=== PATIENT | male | born 1970 | race Caucasian/White ===

== ENCOUNTER 2018-11-10 19:54 | Emergency (ER) | payer SELFPAY ==
[~2018-11-10] VITALS: Ht 170.2 cm; Wt 90.4 kg
[2018-11-10 20:04] VITALS: Ht 170.2 cm; Wt 90.4 kg
[2018-11-10] MEDS ORDERED: IBUP-1542 PO (21:15)
--- NOTE | 2018-11-10 21:17 | ERD ---
ER Documentation Chief Complaint Chief Complaint pt reports pain and itching to penis HPI 47-year-old male presents with some swelling in his right groin for "a long time "without any specifics regarding days or weeks or months. Denies fevers, vomiting, history of trauma. Denies any dysuria, penile discharge. ROS All systems reviewed and are negative except as per history of present illness. Medications Home Meds Active Scripts Ibuprofen* (Motrin*) 600 Mg Tab, 600 MG PO Q6, #20 TAB Prov:ERIC DE PAZ MD 11/10/18 Allergies Allergies: Coded Allergies: No Known Allergy (Unverified , 11/10/18) PMhx/Soc Medical and Surgical Hx: pt denies Medical Hx, pt denies Surgical Hx Hx Alcohol Use: Yes (TODAY ) Hx Substance Use: No Hx Tobacco Use: No Smoking Status: Never smoker FmHx Family History: No diabetes, No coronary disease, No other Physical Exam Vitals Vital Signs Date Temp Pulse Resp B/P (MAP) Pulse Ox O2 O2 Flow FiO2 Time Delivery Rate 11/10/18 98.4 80 16 141/89 98 20:04 (106) Physical Exam Const: No acute distress Head: Atraumatic Eyes: Normal Conjunctiva ENT: Normal External Ears, Nose and Mouth. Neck: Full range of motion. No meningismus. Resp: Clear to auscultation bilaterally Cardio: Regular rate and rhythm, no murmurs Abd: Soft, non tender, non distended. Normal bowel sounds. Large right inguinal hernia. Testicles are nontender and descended and normal size bilaterally. Skin: No petechiae or rashes Back: No midline or flank tenderness Ext: No cyanosis, or edema Neur: Awake and alert Psych: Normal Mood and Affect Results 24 hrs Laboratory Tests Test 11/10/18 21:07 Bedside Urine pH (LAB) 5.5 Bedside Urine Protein (LAB) Negative Bedside Urine Glucose (UA) Negative Bedside Urine Ketones (LAB) Negative Bedside Urine Blood 2+ Bedside Urine Nitrite (LAB) Negative Bedside Urine Leukocyte Esterase (L Negative Current Medications Medications Dose Sig/George Start Time Status Last (Trade) Ordered Route PRN Stop Time Admin Dose Reason Admin Ibuprofen 600 mg ONCE ONCE 11/10/18 (Motrin) PO 21:30 11/10/18 21:31 Procedures/MDM Reduction was performed with gentle pressure on the right inguinal hernia. It was easily reduced. Presents with what appears to be a chronic right inguinal hernia without signs of incarceration, circulation, testicular torsion, additional complications. He will be treated with ibuprofen, recommendations for primary care and general surgery evaluation. Return for worsening pain, fevers, vomiting, new worsening symptoms. The patient was stable with no new complaints during the ER course. Clinically, there is no current evidence to suggest meningitis, sepsis, acute abdomen, pneumonia, stroke, acute coronary syndrome, pulmonary embolism, aortic dissection or any other emergent condition appearing to require further ev aluation or hospitalization. Patient counseled regarding my diagnostic impression and care plan. Prior to discharge all questions answered. Pt agrees with treatment plan and understands strict return precautions. Pt is instructed to follow up with primary care provider within 24-48 hours. Precautionary instructions provided including instructions to return to the ER if not improvi ng or for any worsening or changing symptoms or concerns. Disclaimer: Inadvertent spelling and grammatical errors are likely due to EHR/dictation software use and do not reflect on the overall quality of patient care. Also, please note that the electronic time recorded on this note does not necessarily reflect the actual time of the patient encounter. Departure Diagnosis: Primary Impression: Hernia Condition: Stable Patient Instructions: Hernia (Inguinal, Ventral, Umbilical) Referrals: Lilian DORAN SAMUEL MD LOMIS, THOMAS MD [facility] () Usted se rivera hecho un examen mdico de control que le indica que no est en karmen condicin que requiera tratamiento urgente en el Departamento de Emergencia. Un estudio ms profundo y el tratamiento de doe condicin pueden esperar sin ningn riesgo hasta que usted sea atendida/o en el consultorio de doe mdico o karmen clnica. Es responsabilidad suya arreglar karmen lakeisha para el seguimiento del lg. MANEJO DE CONDICIONES NO URGENTES EN EL FUTURO 1) Si usted tiene un mdico de atencin primaria: Usted debera llamar a doe mdico de atencin primaria antes de venir al departamento de emergencia. Despus de las horas de consultorio, doe doctor o doe asociado/a est disponible por telfono. El mdico o enfermero de zaki en el servicio telefnico puede asesorarle por elinor medio para atender el problema, o lg contrario se puede programar karmen lakeisha. 2) Si usted no tiene un mdico de atencin primaria: Llame al mdico o clnica de referencia que aparece abajo yani las horas de consultorio para hacer karmen lakeisha para que le vean. CLINICAS: [facility] [phone] [id number] [facility] [facility] [phone] [facility] [phone] [address] [facility] [facility] [phone] [address] [facility] [facility] [phone] [address] [facility] [phone] [address] Additional Instructions: tiene un hernia. Va al doe doctor/ specialista para mas evaluacon en el proximo semana. posiblemente necesita autorizado de doe doctor primario para specialista. Regresa para fiebre, o mas o nueva simptomas. ERIC DE PAZ MD Nov 10, 2018 21:17
[2018-11-10] MEDS ORDERED: IBUPROFEN 600 MG TAB PO ONE (21:30)
[2018-11-10 22:05] VITALS: BP 128/72; PULSE 68; RESP 17
== END 2018-11-10 22:05 | disposition home or self-care (01) ==
LOC: FTE 19:54
DX: K40.90 Unilateral inguinal hernia, without obstruction or gangrene, not specified as recurrent (principal)
CPT/HCPCS: 81003; 99283